=== PATIENT | male | born 1955 | race Caucasian/White ===

== ENCOUNTER 2017-12-29 16:35 | Emergency (ER) | payer OTHER ==
[~2017-12-29 16:35] MED LIST: Z.0.NO CURRENT MEDS
[2017-12-29 17:17] VITALS: BP 124/88; PULSE 85; RESP 16; TEMP 97.5; O2SAT 96
[2017-12-29] MEDS ORDERED: TETANUS/DIPHTHERIA TOXOID ADULT 0.5 ML VIAL IM ONE (18:15)
[2017-12-29 19:02] LABS: AUTOMATED NEUTROPHIL # 4.5 TH/MM3 (1.8-7.7); BASOPHIL % 0.3 % (0.0-2.0); EOSINOPHIL # 0.1 TH/MM3 (0-0.4); EOSINOPHIL % 0.9 % (0.0-4.0); HEMATOCRIT 45.9 % (39.0-51.0); LYMPH % 28.4 % (9.0-44.0); MEAN CELL VOLUME 87.1 FL (80.0-100.0); MEAN CORPUSCULAR HEMOGLOBIN 28.4 PG (27.0-34.0); MEAN CORPUSCULAR HGB CONC 32.6 % (32.0-36.0); MEAN PLATELET VOLUME 6.8 FL (7.0-11.0); MONO % 6.2 % (0.0-8.0); MONOCYTE # 0.4 TH/MM3 (0-0.9); NEUT % 64.2 % (16.0-70.0); PLATELET COUNT 444 TH/MM3 (150-450); RED BLOOD COUNT 5.27 MIL/MM3 (4.50-5.90); RED CELL DISTRIBUTION WIDTH 13.7 % (11.6-17.2)
[2017-12-29 19:04] VITALS: PULSE 97; RESP 18; O2SAT 99
--- NOTE | 2017-12-29 19:14 | PD ---
Physical Exam Date Seen by Provider: Dec 29, 2017 Time Seen by Provider: 19:30 Narrative fall facial injury signed out to this MD at 700PM pending CT results and labs--> patient's urine showed that he is positive for cocaine and methamphetamine as well as alcohol level is 291 Data Data Last Documented VS Vital Signs Date Time Temp Pulse Resp B/P (MAP) Pulse Ox O2 Delivery O2 Flow Rate FiO2 12/29/17 19:04 97 18 99 Room Air 12/29/17 17:17 97.5 124/88 (100) Orders Orders Complete Blood Count With Diff (12/29/17 18:01) Comprehensive Metabolic Panel (12/29/17 18:01) Ct Brain W/O Iv Contrast(Rout) (12/29/17 18:01) Iv Access Insert/Monitor (12/29/17 18:01) Ecg Monitoring (12/29/17 18:01) Oximetry (12/29/17 18:01) Drug Screen, Random Urine (12/29/17 18:01) Alcohol (Ethanol) (12/29/17 18:01) Ct Cerv Spine W/O Contrast (12/29/17 18:01) Ct Facial Bones W/O Iv Cont (12/29/17 18:01) Tetanus/Diphtheria Tox Adult (Tetanus/Di (12/29/17 18:15) Ed Discharge Order (12/29/17 20:56) Ed Discharge Order (12/29/17 21:04) Labs Laboratory Tests Test 12/29/17 18:48 White Blood Count 7.0 TH/MM3 Red Blood Count 5.27 MIL/MM3 Hemoglobin 15.0 GM/DL Hematocrit 45.9 % Mean Corpuscular Volume 87.1 FL Mean Corpuscular Hemoglobin 28.4 PG Mean Corpuscular Hemoglobin Concent 32.6 % Red Cell Distribution Width 13.7 % Platelet Count 444 TH/MM3 Mean Platelet Volume 6.8 FL Neutrophils (%) (Auto) 64.2 % Lymphocytes (%) (Auto) 28.4 % Monocytes (%) (Auto) 6.2 % Eosinophils (%) (Auto) 0.9 % Basophils (%) (Auto) 0.3 % Neutrophils # (Auto) 4.5 TH/MM3 Lymphocytes # (Auto) 2.0 TH/MM3 Monocytes # (Auto) 0.4 TH/MM3 Eosinophils # (Auto) 0.1 TH/MM3 Basophils # (Auto) 0.0 TH/MM3 CBC Comment DIFF FINAL Differential Comment Blood Urea Nitrogen 9 MG/DL Creatinine 1.05 MG/DL Random Glucose 164 MG/DL Total Protein 8.8 GM/DL Albumin 4.2 GM/DL Calcium Level 8.7 MG/DL Alkaline Phosphatase 138 U/L Aspartate Amino Transf (AST/SGOT) 24 U/L Alanine Aminotransferase (ALT/SGPT) 31 U/L Total Bilirubin 0.4 MG/DL Sodium Level 134 MEQ/L Potassium Level 3.8 MEQ/L Chloride Level 100 MEQ/L Carbon Dioxide Level 25.1 MEQ/L Anion Gap 9 MEQ/L Estimat Glomerular Filtration Rate 71 ML/MIN Urine Opiates Screen NEG Urine Barbiturates Screen NEG Urine Amphetamines Screen POS Urine Benzodiazepines Screen NEG Urine Cocaine Screen POS Urine Cannabinoids Screen NEG Ethyl Alcohol Level 291 MG/DL MDM Supervised Visit with EMILY: No Narrative Course CT of head is negative for acute injury cervical spine is negative for acute injury and the facial bones has a flattening of the nasal bone possibly an old injury or acute fracture. Patient reports he has broken his nose multiple times in the past patient is safe for discharge his son is here to take him home patient has no ataxia he is alert oriented 3 and safe for discharge Diagnosis Primary Impression: Head injury Qualified Codes: S09.90XA - Unspecified injury of head, initial encounter Additional Impression: Injury of nose Qualified Codes: S09.92XA - Unspecified injury of nose, initial encounter Patient Instructions: General Instructions, Head Injury (ED) Scripts No Active Prescriptions or Reported Meds Disposition: 01 DISCHARGE HOME Condition: Good Joel Paz MD Dec 29, 2017 19:14
--- NOTE | 2017-12-29 19:15 | PD ---
HPI Chief Complaint: Fall Time Seen by Provider: 17:47 Travel History International Travel<30 days: No Contact w/Intl Traveler<30days: No Traveled to known affect area: No History of Present Illness HPI 62-year-old male with a history of alcohol abuse, presents here after having a mechanical fall while intoxicated. The patient is belligerent and intoxicated and unable to provide any further history. Patient denies any pain. Patient has obvious bloody nose. He denies any neck pain he is in c-collar mobilization and on backboard however he is nearly half off his backboard when he arrived. [facility] Past Surgical History Abdominal Surgery: Yes (PERFORATED COLON ) Other Surgery: Yes (HERNIA) Social History Alcohol Use: Yes Tobacco Use: No Substance Use: No Allergies-Medications (Allergen,Severity, Reaction): Coded Allergies: penicillin G (Unverified Allergy, Severe, Hives, 12/29/17) Reported Meds & Prescriptions Reported Meds & Active Scripts Active No Active Prescriptions or Reported Medications Review of Systems ROS Limitations: Intoxication (Unable to obtain review of systems secondary to patient's intoxicated state.) Physical Exam Narrative GENERAL: Well-developed well-nourished male in C-spine backboard immobilization. Patient was hanging off the backboard when I went into the room to evaluate him. He was trying to wiggle free. Patient appears to be in no acute distress. SKIN: Focused skin assessment warm/dry. HEAD: Normocephalic. Patient has abrasion/superficial laceration to the bridge of his nose. EYES: Extraocular muscles are intact.. No scleral icterus. No injection or drainage. ENT: Positive drying nasal blood. No nasal septal hematoma appreciated. Mucous membranes pink and moist. NECK: Trachea midline. In c-collar mobilization. CARDIOVASCULAR: Regular rate and rhythm. No murmur appreciated. RESPIRATORY: No accessory muscle use. Clear to auscultation. Breath sounds equal bilaterally. GASTROINTESTINAL: Abdomen soft, non-tender, nondistended. Hepatic and splenic margins not palpable. MUSCULOSKELETAL: No obvious deformities. No clubbing. No cyanosis. No edema. BACK: No obvious deformity noted. Patient is intoxicated however on logroll we did not appreciate any step-offs. NEUROLOGICAL: Awake and intoxicated. No obvious cranial nerve deficits. Motor grossly within normal limits. Normal speech. Data Data Last Documented VS Vital Signs Date Time Temp Pulse Resp B/P (MAP) Pulse Ox O2 Delivery O2 Flow Rate FiO2 12/29/17 19:04 97 18 99 Room Air 12/29/17 17:17 97.5 124/88 (100) Orders Orders Complete Blood Count With Diff (12/29/17 18:01) Comprehensive Metabolic Panel (12/29/17 18:01) Ct Brain W/O Iv Contrast(Rout) (12/29/17 18:01) Iv Access Insert/Monitor (12/29/17 18:01) Ecg Monitoring (12/29/17 18:01) Oximetry (12/29/17 18:01) Drug Screen, Random Urine (12/29/17 18:01) Alcohol (Ethanol) (12/29/17 18:01) Ct Cerv Spine W/O Contrast (12/29/17 18:01) Ct Facial Bones W/O Iv Cont (12/29/17 18:01) Tetanus/Diphtheria Tox Adult (Tetanus/Di (12/29/17 18:15) Labs Laboratory Tests Test 12/29/17 18:48 White Blood Count 7.0 TH/MM3 Red Blood Count 5.27 MIL/MM3 Hemoglobin 15.0 GM/DL Hematocrit 45.9 % Mean Corpuscular Volume 87.1 FL Mean Corpuscular Hemoglobin 28.4 PG Mean Corpuscular Hemoglobin Concent 32.6 % Red Cell Distribution Width 13.7 % Platelet Count 444 TH/MM3 Mean Platelet Volume 6.8 FL Neutrophils (%) (Auto) 64.2 % Lymphocytes (%) (Auto) 28.4 % Monocytes (%) (Auto) 6.2 % Eosinophils (%) (Auto) 0.9 % Basophils (%) (Auto) 0.3 % Neutrophils # (Auto) 4.5 TH/MM3 Lymphocytes # (Auto) 2.0 TH/MM3 Monocytes # (Auto) 0.4 TH/MM3 Eosinophils # (Auto) 0.1 TH/MM3 Basophils # (Auto) 0.0 TH/MM3 CBC Comment DIFF FINAL Differential Comment MDM Medical Decision Making Medical Screen Exam Complete: Yes Emergency Medical Condition: Yes Differential Diagnosis Alcohol intoxication versus facial bone fracture versus intracranial injury Narrative Course 62-year-old gentleman history of alcohol abuse, presents here intoxicated after mechanical fall. Patient has abrasions and superficial lacerations to the bridge of his nose. The patient is unsure of his last tetanus shot. He has been given tetanus immunization. There is no nasal septal hematoma. CTs are pending at this time. Alcohol level and U tox is also pending. Patient's been signed out to Dr. Paz, physician replaced me at change of shift. Disposition will be per him. Diagnosis Primary Impression: Blunt head trauma Additional Impressions: Nasal laceration EtOH intoxication Scripts No Active Prescriptions or Reported Meds Jeovany Cruz MD Dec 29, 2017 19:15
[2017-12-29 19:32] LABS: ALBUMIN 4.2 GM/DL (3.4-5.0); AST (GOT) 24 U/L (15-37); BICARBONATE 25.1 MEQ/L (21.0-32.0); BLOOD UREA NITROGEN 9 MG/DL (7-18); CALCIUM 8.7 MG/DL (8.5-10.1); CHLORIDE 100 MEQ/L (98-107); CREATININE 1.05 MG/DL (0.60-1.30); GLOMERULAR FILTRATION RATE 71 ML/MIN (>89); GLUCOSE,RANDOM 164 MG/DL (74-106); SODIUM (NA) 134 MEQ/L (136-145)
[2017-12-29 19:36] LABS: ALKALINE PHOSPHATASE 138 U/L (45-117); ALT (GPT) 31 U/L (12-78); TOTAL BILIRUBIN ADULT 0.4 MG/DL (0.2-1.0); TOTAL PROTEIN 8.8 GM/DL (6.4-8.2)
--- NOTE | 2017-12-29 20:18 | RADRPT ---
EXAM DATE/TIME: 12/29/2017 19:27 [facility] COMPARISON: No previous studies available for comparison. INDICATIONS : Trauma. Fell on face. ETOH RADIATION DOSE: 41.66 CTDIvol (mGy) MEDICAL HISTORY : None SURGICAL HISTORY : None. ENCOUNTER: Initial ACUITY: 1 day PAIN SCALE: 0/10 LOCATION: cranial TECHNIQUE: Multiple contiguous axial images were obtained of the head. Using automated exposure control and adj ustment of the mA and/or kV according to patient size, radiation dose was kept as low as reasonably a chievable to obtain optimal diagnostic quality images. DICOM format image data is available electro nically for review and comparison. FINDINGS: CEREBRUM: The ventricles are dilated especially at the mid and posterior aspects of the lateral ventricles.. N o evidence of midline shift, mass lesion, hemorrhage or acute infarction. No extra-axial fluid colle ctions are seen. POSTERIOR FOSSA: The cerebellum and brainstem are intact. The 4th ventricle is midline. The cerebellopontine angle i s unremarkable. EXTRACRANIAL: The visualized portion of the orbits is intact. There is increased density at the left maxillary sinu s. The patient is to have a CT of the facial bones to follow. SKULL: The calvaria is intact. No evidence of skull fracture. CONCLUSION: 1. No acute areas of hemorrhage or mass effect are seen. 2. Dilatation of the ventricles related to pre-existing hydrocephalus or normal pressure hydrocephalu s. Sulcal widening is not seen. Kofi Fernandez MD on December 29, 2017 at 20:13 Board Certified Radiologist. This report was verified electronically.
--- NOTE | 2017-12-29 20:38 | RADRPT ---
EXAM DATE/TIME: 12/29/2017 19:27 [facility] COMPARISON: No previous studies available for comparison. INDICATIONS : Trauma. Fell on face. ETOH RADIATION DOSE: 21.41 CTDIvol (mGy) MEDICAL HISTORY : None SURGICAL HISTORY : None. ENCOUNTER: Initial ACUITY: 1 day PAIN SCALE: 0/10 LOCATION: neck TECHNIQUE: Volumetric scanning of the cervical spine was performed. Multiplanar reconstructions in the sagittal, coronal and oblique axial planes were performed. Using automated exposure control and adjustment o f the mA and/or kV according to patient size, radiation dose was kept as low as reasonably achievable to obtain optimal diagnostic quality images. DICOM format image data is available electronically f or review and comparison. FINDINGS: VERTEBRAE: Normal vertebral body height. There is chronic degenerative change, cystic change and sclerosis at th e dens and C1-C2 articulation. ALIGNMENT: There is minimal posterior subluxation of C3 on C4. C2-C3: The bony spinal canal is normal in size. No evidence of disc bulge or herniation. The neural forami na are bilaterally patent. C3-C4: The disc demonstrates mild loss of height. Again noted is the minimal posterior subluxation. Signific ant stenosis is not seen. There is mild facet and uncovertebral hypertrophy. The uncovertebral hypert rophy is worse on the right. There is narrowing of the neural foramina bilaterally being worse on the right. Mild anterior marginal osteophytes are seen. C4-C5: The bony spinal canal is normal in size. No evidence of disc bulge or herniation. The neural forami na are bilaterally patent. There is minimal facet hypertrophy. Mild anterior marginal osteophytes are seen. C5-C6: The bony spinal canal is normal in size. No evidence of disc bulge or herniation. The neural forami na are bilaterally patent. Mild anterior marginal osteophytes are seen. C6-C7: The bony spinal canal is normal in size. No evidence of disc bulge or herniation. The neural forami na are bilaterally patent. C7-T1: The bony spinal canal is normal in size. No evidence of disc bulge or herniation. The neural forami na are bilaterally patent. CONCLUSION: 1. No acute abnormality seen. 2. Degenerative change in the cervical spine. Kofi Fernandez MD on December 29, 2017 at 20:30 Board Certified Radiologist. This report was verified electronically.
--- NOTE | 2017-12-29 20:42 | RADRPT ---
EXAM DATE/TIME: 12/29/2017 19:27 [facility] COMPARISON: No previous studies available for comparison. INDICATIONS : Trauma. Fell on face. ETOH RADIATION DOSE: 61.24 CTDIvol (mGy) MEDICAL HISTORY : None SURGICAL HISTORY : None. ENCOUNTER: Initial ACUITY: 1 day PAIN SCORE: 0/10 LOCATION: facial TECHNIQUE: Volumetric scanning of the facial bones was performed. Using automated exposure control and adjustme nt of the mA and/or kV according to patient size, radiation dose was kept as low as reasonably achiev able to obtain optimal diagnostic quality images. DICOM format image data is available electronicall y for review and comparison. FINDINGS: ORBITS: The orbital and infraorbital osseous structures are intact. The retroconal structures have a normal configuration. No radiopaque foreign bodies are seen. There appears to be a chronic defect/bulging a t the inferior medial lamina papyracea on the right likely from prior healed fracture. An acute fract ure is not seen. NASAL BONE: There is flattening of the anterior aspect of the nasal bones which could represent fracture. The age of this deformity is not known. ZYGOMATIC ARCHES: Symmetric without evidence of fracture. SINUSES: There is mucosal disease of the left frontal, left ethmoid, and left maxillary sinuses. NASAL CAVITY: The nasal septum is intact and midline. The lacrimal ducts are intact. SOFT TISSUES: No radiopaque foreign bodies seen. No soft-tissue swelling is seen. INTRACRANIAL: No intracranial air seen. CRIBIFORM PLATE: Grossly intact. CONCLUSION: 1. Deformity at the anterior superior aspect of the nasal bones with flattening seen. This is fractur e poorly. The age is not known. Acute fracture lines are not clearly seen. 2. Sinus disease. Kofi Fernandez MD on December 29, 2017 at 20:36 Board Certified Radiologist. This report was verified electronically.
== END 2017-12-29 21:15 | disposition home or self-care (01) ==
LOC: NEPE 16:35
DX: S01.21XA Laceration without foreign body of nose, initial encounter (principal); F10.129 Alcohol abuse with intoxication, unspecified; W19.XXXA Unspecified fall, initial encounter; Y90.8 Blood alcohol level of 240 mg/100 ml or more; Z23 Encounter for immunization
CPT/HCPCS: 70450; 70486; 72125; 80053; 80307; 85025; 90471; 90714